=== PATIENT | female | born 1975 | race Caucasian/White ===

== ENCOUNTER 2020-11-11 12:31 | Emergency (ER) | payer BC, SELFPAY ==
[2020-11-11 12:51] VITALS: BP 121/78; PULSE 96; RESP 16; TEMP 36.3; O2SAT 97; BMI 36.8
--- NOTE | 2020-11-11 12:55 | ED_ITS ---
HPI - Eye Problem General Chief complaint: Eye Problems Stated complaint: eye problem Time Seen by Provider: 11/11/20 12:55 History of Present Illness HPI Narrative: Patient complains of right eye redness, saw her doctor was put on Polytrim drops and now there is swelling of the right upper lid and redness to the lid and some swelling below the eye, no loss of vision no photophobia no headache no rash no eye pain Related Data Previous Rx's Medication Instructions Recorded cephalexin 500 mg PO QID 7 Days #28 tab 11/11/20 Allergies Allergy/AdvReac Type Severity Reaction Status Date / Time No Known Allergies [NKA] Allergy Verified 11/11/20 12:55 Review of Systems Review of Systems: Right eyelid redness and pain as well as right eye redness Negatives are no fever no chills no dizziness no weakness no headache no vision loss no eye pain no photophobia no neck pain no chest pain no shortness of breath no skin rash Yes all other systems are reviewed and are negative [facility] Past Medical History Source: nursing notes reviewed Medical History (Updated 11/12/20 @ 00:01 by Gina Sorto) delivery delivered Hypothyroid Surgical History (Updated 11/11/20 @ 12:55 by Mary Rosales) Hx of cholecystectomy Social History Social History Advance Directives: Yes Advance Directives Information Provided: Yes Advance Directives on File: No Physical Exam Vital Signs: Vital Signs: Last Vital Signs Temp 97.3 F 11/11/20 12:51 Pulse 96 11/11/20 12:51 Resp 16 11/11/20 12:51 BP 121/78 11/11/20 12:51 Pulse Ox 97 11/11/20 12:51 Body Mass Index 36.8 General appearance no acute distress Head is normocephalic atraumatic The eye exam visual acuity is 2020 bilateral The right eye had some conjunctival redness no obvious discharge, the right eyelid the skin was red warm and tender, there was some mild swelling beneath the eye, pupils equal round reactive to light and extraocular motions are full and intact, there is no rash around the eye Pharynx is clear with moist mucous membranes Neck is supple Respiratory no distress Skin no rashes Course Course Course Narrative: Patient is being treated with Polytrim drops for conjunctivitis As the skin of the eyelid is now red and warm and tender I am concerned about a developing cellulitis so we started antibiotic by mouth, patient will follow with eye doctor if not better or return here any time if worse Discharge Plan Discharge Clinical Impression: Cellulitis, Blepharitis, Bacterial conjunctivitis Patient Disposition: Home, Self-Care Additional Instructions: Continue the Polytrim antibiotic eyedrops As the skin on the eyelid is very red and tender I am concerned getting a skin infection around the eye so we are starting Keflex antibiotics I stained the eye there was no evidence of corneal abrasion or ulceration The visual acuity was normal 2019 If not better by Saturday follow with eye doctor or primary care doctor, or return here any time if things are failing to improve or getting worse in any way, especially if you develop eye pain or vision loss Prescriptions: New cephalexin 500 mg tablet 500 mg PO QID 7 Days Qty: 28 RF: 0 Referrals: Rajesh Louise [Physician] - 2 days (Right eye blepharitis, conjunctivitis) Interventions: ED Discharge Assessment Last Done: 11/11/20 13:25 Discharge Date/Time: 11/11/20 13:26
[2020-11-11] MEDS: Fluorescein Sodium STRIP 1 STRIP EYE-LEFT (13:06)
[2020-11-11] MEDS: Tetracaine HCl/PF 0.5% Oph Sol 4 ML DROPS 3 DROP EYE-LEFT (13:06)
[2020-11-11] MEDS: cephALEXin 500 MG CAPSULE PO (13:22)
== END 2020-11-11 13:26 | disposition home or self-care (01) ==
PROVIDERS: Emergency Provider Emergency Medicine; PCP Nurse Practitioner Family
DX: H01.001 Unspecified blepharitis right upper eyelid (principal); H10.31 Unspecified acute conjunctivitis, right eye; Z79.899 Other long term (current) drug therapy
CPT/HCPCS: 99283

== ENCOUNTER 2025-05-31 11:59 | Emergency (ER) | payer BC, SELFPAY ==
[2025-05-31] VITALS (8 sets, daily range): BP systolic 100–153; BP diastolic 63–74; PULSE 73–120; RESP 16–18; TEMP 36.2–36.6; O2SAT 98–100; BMI 29.7
--- NOTE | ~2025-05-31 | CT_ITS ---
EXAMINATION: CT CERVICAL SPINE WITHOUT CONTRAST CLINICAL INFORMATION: Fall, head strike COMPARISON: None available. TECHNIQUE: Axial imaging. Sagittal and coronal reconstructions. This CT examination was performed using dose optimization techniques as appropriate, variously including the following: *Automated exposure control *Adjustment of mA and/or kV according to patient size (this includes techniques or standardized protocols for targeted exams where dose is matched to indication/reason for exam; i.e. extremities or head) *Use of iterative reconstruction technique FINDINGS: Craniocervical and atlantoaxial articular is maintained. Straightening of the spinal cervical curvature. Sagittal vertebral body alignment is maintained. Predens space is maintained. Vertebral body heights are maintained. No evidence of acute fracture or traumatic subluxation. Small corticated ossification anterior to the C4-5 disc space, appears chronic. Disc spaces are maintained. Facet joint articulation is maintained.. No prevertebral soft tissue swelling. Esophagus is nondistended. Trachea is patent. No suspicious thyroid findings. No pathologically enlarged lymph nodes is seen. Lung apices are clear. CT/CT cervical spine wo IV con IMPRESSION: No CT evidence of acute fracture or traumatic malalignment Fleischner guidelines were followed. Electronically signed by: Sachin Sanchez MD 05/31/2025 01:28 PM EST
--- NOTE | ~2025-05-31 | CT_ITS ---
EXAMINATION: CT HEAD WITHOUT IV CONTRAST HISTORY: syncope, +head strike. TECHNIQUE: Unenhanced helical CT of the head was performed per standard departmental protocol. Coronal and sagittal reformats of the head were also evaluated. One or more of the following techniques was used for dose reduction: Automated exposure control, adjustment of the mA and/or kV according to patient size, use of iterative reconstruction technique. DLP: 743 mGy-cm COMPARISON: There are no prior studies available for comparison. FINDINGS: BRAIN: The brain parenchyma is unremarkable. There is normal mckenzie/white differentiation. The ventricular system is normal in size and configuration. There is no mass effect or midline shift. No intra- or extra-axial fluid collections are identified. SINUSES: There is mucosal thickening in the bilateral maxillary sinuses. The mastoid air cells and middle ear cavities are well pneumatized. ORBITS: The visualized orbits are unremarkable. BONES/SOFT TISSUES: The extracranial soft tissues are unremarkable. The calvarium is intact. No suspicious lytic or sclerotic lesions. CT/CT head/brain wo IV con IMPRESSION: Unremarkable unenhanced head CT. Electronically signed by: Steven Herrera MD 05/31/2025 01:07 PM [facility] [place]
--- NOTE | 2025-05-31 12:11 | ED_ITS ---
[facility] - General Adult General Chief complaint: Syncope Stated complaint: General Medical Time Seen by Provider: 05/31/25 13:18 Source: patient Mode of arrival: ambulatory Limitations: no limitations History of Present Illness ED Provider: Dr. Bauman [facility] narrative: This is a 49-year-old female presented hospital today for evaluation of multiple syncopal episode yesterday. Patient stated she had 2 syncopal episode. The first one was when she was lying down on the couch. She stand up. She fell some dizziness prior to her syncopal episode. She denies any chest pain denies any shortness of breath. Patient stated the 2nd episode happened when she was attempted to ambulate to the kitchen. She fell a warm flushing sensation prior to a syncopal episode.. She is unable to recall the event however the said she would pass out. She has no active chest pain at this time. No leg swelling no history of blood clots or DVT or PE in the past. Related Data Previous Rx's ?Medication ?Instructions ?Recorded cephalexin 500 mg tablet 500 mg PO QID 7 days #28 tab s 11/11/20 Allergies Allergy/AdvReac Type Severity Reaction Status Date / Time No Known Allergies (NKA) Allergy Verified 05/31/25 12:13 Review of Systems 2 Review of Systems: Pertinent review of systems as mentioned in [facility]. All other system otherwise negative. [facility] Past Medical History [facility] Narrative: Medical history as mentioned in HPI Medical History (Updated 05/31/25 @ 15:25 by Marva Bauman DO) delivery delivered Hypothyroid Surgical History (Updated 11/11/20 @ 12:55 by Mary Rosales RN) Hx of cholecystectomy Social History Social History Advance Directives: No Advance Directives Information Provided: Yes Physical Exam ED Exam Exam: General: Pleasant, no distress, interacting appropriately Head: Normacephalic, atraumatic ENT: oral mucosa moist, neck supple, no tracheal deviation Cardiovascular: regular rate, regular rhythm, no murmurs, rubbing, gallops Respiratory: CTAB, no wheeze, rales, rhonchi Extremities: No limb pain or swelling, no calf tenderness Neurological: Awake and alert, no facial droop noted Skin: Warm and dry Psychiatric: Appropriate mood and thoughts Vital Signs: Vital Signs - 24 hr 05/31/25 12:11 05/31/25 12:57 05/31/25 14:08 Temperature 97.1 F Pulse Rate 120 H 101 H 76 Respiratory Rate 18 16 Blood Pressure 153/73 H 111/70 102/65 Pulse Oximetry 98 99 Oxygen Delivery Method Room Air Room Air 05/31/25 14:08 05/31/25 14:09 05/31/25 15:04 Temperature Pulse Rate 94 91 73 Respiratory Rate Blood Pressure 112/70 100/67 111/69 Pulse Oximetry Oxygen Delivery Method 05/31/25 15:05 05/31/25 15:07 05/31/25 15:07 Temperature 97.8 F Pulse Rate 76 76 76 Respiratory Rate 16 Blood Pressure 119/74 119/74 130/63 Pulse Oximetry 100 Oxygen Delivery Method Room Air BMI result Body Mass Index 29.7 Course Course Course Narrative: This is an RME: Additional HPI, ROS, PE not included below will be deferred to primary provider. RME assessment and note performed by: Kari Del Castillo PA-C This is a [id number], with a hx of hypothyroidism, who presents to the ER with a complaint of 3 episodes of syncope yesterday. Patient reports that she was at home around 930 when she got up from her couch walk to her kitchen which is not a far distance and woke up on the floor. There is 2 other episodes similar. These were witnessed by her . No history of similar symptoms in the past. She states that she was feeling well prior to the incident. No recent illness. She did have a cold for several days in April. No alcohol or drug use. No recent diarrhea or vomiting. No recent travels, surgeries, hospitalizations. No hormone replacement therapy. Reports this AM she felt a little off . No pain. Otherwise feel ok. No CP, SOB. Plan: Further ER evaluation needed. Medications Administered Discontinued Medications Generic Name Dose Route Start Last Admin Trade Name Freq PRN Reason Stop Dose Admin Lactated Ringer's 1,000 mls @ 999 mls/hr 05/31/25 13:30 05/31/25 14:21 Lr IV 05/31/25 14:30 999 mls/hr .Q1H1M MIS Administration Medical Decision Making Medical Decision Making MDM Narrative: 49-year-old female presented hospital today for evaluation of multiple syncopal episode. Patient has no be tachycardic with heart rate in the 100. We will plan to give patient a bolus IV fluid. We will check orthostasis afterward. Given her history of presentation this does sounds like orthostatic hypotension. The patient had lab work performed prior to my evaluation. CT head was negative. CT C-spine is negative. Patient's CBC is unremarkable, chemistries unremarkable. Patient's viral swab is negative. Review patient's EKG shows sinus rhythm. No sign of cardiac arrhythmia Patient's CBC and chemistries unremarkable. Orthostatic vital signs were obtained after IV fluid. The patient has no signs of orthostatic hypotension. Patient's cardiac enzymes negative EKG is unremarkable. We will plan to discharge patient does time. I suspect patient likely has orthostatic hypotension that may have caused her syncopal episode. Encouraged the patient to increase her fluid intake and salt intake for the time being. She agrees and understands this plan all questions were addressed. Patient is asymptomatic at time of discharge. Differential Diagnosis Differential Diagnoses: The differential diagnosis associated with the presentation includes Cardiac arrhythmia, tachycardia, syncope, orthostatic hypotension, closed head trauma, dehydration Admission/Observation Consideration of admission/observation: Escalation of care including admission/observation considered Lab Data MDM Lab Attestation statement: I reviewed the patient's lab results. 05/31/25 12:32 05/31/25 12:32 Labs: Lab Results 05/31/25 Range/Units 12:32 WBC 8.5 (4.8-10.8) X10*3/uL RBC 5.16 (4.20-5.50) X10*6/uL Hgb 15.2 (12.0-16.0) g/dl Hct 46.0 (37.0-47.0) % MCV 89.1 (80.0-98.0) fL MCH 29.5 (27.0-33.0) pg MCHC 33.0 (31.0-35.0) g/dl RDW 13.1 (11.0-16.0) % Plt Count 260 (160-400) X10*3/uL MPV 10.6 (9.4-12.3) fL Immature Gran % (Auto) 0.2 (0.0-0.4) % Neut % (Auto) 67.3 (45-73) % Lymph % (Auto) 21.2 (20-40) % [place] % (Auto) 4.7 (2-11) % Eos % (Auto) 5.9 H (0-4) % Baso % (Auto) 0.7 (0-2) % Lymph # (Auto) 1.8 (1.2-4.9) X10*3/uL [place] # (Auto) 0.4 (0.1-1.2) X10*3/uL Eos # (Auto) 0.5 H (0.0-0.4) X10*3/uL Baso # (Auto) 0.1 (0.0-0.2) X10*3/uL Abs Immat Gran (auto) 0.02 (0.00-0.03) X10*3/uL Absolute Neuts (auto) 5.7 (2.0-8.3) x10*3/uL Absolute Nucleated RBC 0.000 (0.0-0.012) X10*3/uL Nucleated RBC % (auto) 0.0 (0.0-0.2) /100WBC PT 11.1 L (11.2-13.5) SEC INR 0.9 (0.9-1.1) Sodium 141 (135-145) mmol/L Potassium 3.6 (3.3-5.1) mmol/L Chloride 108 (96-108) mmol/L Carbon Dioxide 25 (22-29) mmol/L Anion Gap 12 (12-20) BUN 10 (9-16) mg/dL Creatinine 0.83 (0.5-1.4) mg/dL Estim Creat Clear Calc 87.3 Estimated GFR > 60 Random Glucose 90 (60-115) mg/dL Calcium 9.3 (8.4-10.2) mg/dL Magnesium 2.0 (1.6-2.6) mg/dL Total Bilirubin 0.5 (0.0-1.0) mg/dL Direct Bilirubin 0.2 (0.0-0.5) mg/dL AST 24 (5-31) U/L ALT 24 (0-31) U/L Alkaline Phosphatase 59 (39-117) U/L Troponin I High Sens < 2.7 (<3.5-17.0) ng/L Total Protein 7.7 (6.5-8.0) g/dL Albumin 4.6 (3.5-5.0) g/dL TSH 1.44 (0.32-4.0) uIU/mL Influenza Type A (PCR) NEGATIVE (Negative) Influenza Type B (PCR) NEGATIVE (Negative) RSV RNA Qual (PCR) NEGATIVE (Negative) SARS-CoV-2 RNA (RT-PCR) NEGATIVE (Negative) Independent Interpretation I performed an independent interpretation of an: EKG Discharge Plan Discharge Clinical Impression: Orthostasis Syncope Qualifiers: Syncope type: unspecified Qualified Code(s): R55 - Syncope and collapse Patient Disposition: Home, Self-Care Instructions: Syncope (ED) Additional Instructions: Increase your fluid and salt intake. Make sure to stay well hydrated. Drink at least 64 ounces per day. Lab work today is reassuring. Thyroid level is normal Electrolytes normal, Cardiac enzyme is normal. Red Blood cell level is normal. Prescriptions: No Action cephalexin 500 mg tablet 500 mg PO QID 7 Days Qty: 28 0RF Print Language: Frisian
--- NOTE | 2025-05-31 12:18 | ECG_ITS ---
Test Reason : syncope Blood Pressure : */* mmHG Vent. Rate : 100 BPM Atrial Rate : 100 BPM P-R Int : 108 ms QRS Dur : 72 ms QT Int : 348 ms P-R-T Axes : 48 8 63 degrees QTcB Int : 448 ms Sinus rhythm with short NC Cannot rule out Anterior infarct , age undetermined Abnormal ECG No previous ECGs available Referred By: Kari Del Castillo Electronically Signed By: Mango Stauffer
[2025-05-31 12:37] LABS: MANUAL DIFF FLAG NO
[2025-05-31 12:38] LABS: Hematocrit 46.0 % (37.0-47.0); Hemoglobin 15.2 g/dl (12.0-16.0); Imm Gran Abs Auto 0.02 X10*3/uL (0.00-0.03); Imm Gran Pct Auto 0.2 % (0.0-0.4); Lymphocytes Absolute Auto 1.8 X10*3/uL (1.2-4.9); Mean Corpuscular HGB Conc 33.0 g/dl (31.0-35.0); Mean Corpuscular Hemoglobin 29.5 pg (27.0-33.0); Mean Corpuscular Volume 89.1 fL (80.0-98.0); NRBC Abs Auto 0.000 X10*3/uL (0.0-0.012); NRBC Pct Auto 0.0 /100WBC (0.0-0.2); Platelet Count 260 X10*3/uL (160-400); Red Blood Count 5.16 X10*6/uL (4.20-5.50); White Blood Count 8.5 X10*3/uL (4.8-10.8)
[2025-05-31 12:47] LABS: INTERNATIONAL NORM RATIO 0.9 (0.9-1.1); Prothrombin Time 11.1 SEC (11.2-13.5)
[2025-05-31 12:54] LABS: Alanine Aminotransferase 24 U/L (0-31); Albumin Level 4.6 g/dL (3.5-5.0); Alkaline Phosphatase 59 U/L (39-117); Anion Gap 12 (12-20); Aspartate Amino Transferase 24 U/L (5-31); Blood Urea Nitrogen 10 mg/dL (9-16); Calcium 9.3 mg/dL (8.4-10.2); Carbon Dioxide 25 mmol/L (22-29); Chloride 108 mmol/L (96-108); Creatinine Clr Calc Pharmacy 87.3; Estimated Glomerular Filt Rate > 60; Magnesium 2.0 mg/dL (1.6-2.6); Potassium 3.6 mmol/L (3.3-5.1); Sodium 141 mmol/L (135-145); Total Protein 7.7 g/dL (6.5-8.0)
[2025-05-31 13:04] LABS: Troponin-I High Sensitivity < 2.7 ng/L (<3.5-17.0)
[2025-05-31 13:16] LABS: Resp Syncy Virus RNA Qual PCR NEGATIVE (Negative); SARS COV2 PCR INHOUSE NEGATIVE (Negative)
[2025-05-31 14:03] LABS: Thyroid Stimulating Hormone 1.44 uIU/mL (0.32-4.0)
[2025-05-31] MEDS: Lactated Ringers 1,000 ML 999 ML IV (14:21)
--- OUTSIDE RECORDS SUMMARY | 2025-05-31 17:13 | XMS_ITS | Clinical Summary ---
Author Organization [facility] Address [address] [address] Phone Care Team Providers Care Cat Skinner Name Role Phone Pcp, Unknown Primary Care Provider Unavailabl e Allergies No known active allergies Medications levothyroxine (SYNTHROID, LEVOTHROID) 112 MCG tablet Take 112 mcg by mouth every morning. Active Active Problems No known active problems Social History Tobacco Use Types Packs/Day Years Used Date Smoking Tobacco: Former Cigarettes Smokeless Tobacco: Never Tobacco Cessation:Counseling Given: Not Answered Education Answer Date Recorded Are you interested in more education? Not on soledad e 11/03/2022 Are you concerned about learning? Not on file 11/03/2022 No 11/03/2022 No 11/03/2022 Digital Access Answer Date Recorded No 12/02/2022 No 12/02/2022 No 12/02/2022 Reliable internet access at home? Not on file 12/02/2022 Device with a working camera? Not on file Comments Unknown Sex and Gender Information Value Date Recorded Sex Assigned at Not on file Legal Sex Female 8:51 AM EDT Gender Identity Not on file Sexual Orientation Not on file Last Filed Vital Signs Vital Sign Reading Time Taken Comments Blood Pressure 122/66 10/12/2022 10:16 AM EDT Pulse 84 10/12/2022 10:16 AM EDT Temperature 36.6 C (97.9 F) 10/12/2022 10:16 AM EDT Respiratory Rate 18 10/12/2022 10:16 AM EDT Oxygen Saturation 99% 10/12/2022 10:16 AM EDT Inhaled Oxygen Concentration - - Weight 99.8 kg (220 lb) 10/12/2022 10:16 AM EDT Height 167.6 cm (5' 6 ) 10/12/2022 10:16 AM EDT Body Mass Index 35.51 10/12/2022 10:16 AM EDT Plan of Treatment Health Maintenance Due Date Last Done Comments LIPID PANEL 1973 TSH LEVEL 1973 DEPRESSION SCREENING 1985 SMOKING Hx and SMOKELESS TOBACCO SCREENING 1986 HEPATITIS C SCREENING 1991 HIV ONE-TIME SCREENING (18-65 YEARS) 1991 PAP SMEAR 1994 SCREENING FOR DIABETES 2008 MAMMOGRAM 2013 COLOGUARD 2018 COLONOSCOPY 2018 COLORECTAL CANCER SCREENING 2018 FIT TEST 2018 FOBT 2018 SIGMOIDOSCOPY 2018 VIRTUAL COLONOSCOPY 2018 PNEUMOCOCCAL VACCINES (50+ years) (1 of 1 - PCV) 2023 ZOSTER VACCINES (1 of 2) 2023 INFLUENZA VACCINE (#1) 2025 , 04/04/2021, 04/28/2020, Additional history exists COVID-19 VACCINE (2024- season) 2025 05/16/2021, 09/19/2020, 08/23/2020, Additional history exists Adult Td,Tdap Booster 10/20/2030 10/20/2020 RSV VACCINE (1 - 1-dose 75+ series) 2048 HEPATITIS A VACCINES Aged Out No long er eligible based on patient's age to complete this topic HIB VACCINES Aged Out No longer eligi ble based on patient's age to complete this topic MENINGOCOCCAL VACCINES (ACWY) Aged Out No longer eligible based on patient's age to complete this topic MENINGOCOCCAL VACCINES (B) Aged Out N o longer eligible based on patient's age to complete this topic Medical Devices Not on file [place] [address] [address] [place] [address] [place] [address] [place] [address] Care Teams Cat Skinner Relationship Specialty Start Date End Date Pcp, Unknown PCP - General 10/12/22 Additional Source Comments The information contained in this document represents components of the legal health record. It is not the complete legal health record.[facility]
== END 2025-05-31 15:51 | disposition home or self-care (01) ==
PROVIDERS: Physician Assistant Medical; Emergency Provider Student in an Organized Health Care Education/Training Program; PCP Physician Assistant
DX: I95.1 Orthostatic hypotension (principal); S09.90XA Unspecified injury of head, initial encounter; W19.XXXA Unspecified fall, initial encounter; Y93.9 Activity, unspecified; Y92.9 Unspecified place or not applicable; E03.9 Hypothyroidism, unspecified; Z03.818 Encounter for observation for suspected exposure to other biological agents ruled out
CPT/HCPCS: 36415; 70450; 72125; 80048; 80076; 83735; 84443; 84484; 85025; 85610; 87637; 93005; 96360; 99284; 99285; J7120

== ENCOUNTER → 2025-05-31 12:18 | Outpatient (BNV) | payer BC, SELFPAY | PROVIDERS: Emergency Provider Student in an Organized Health Care Education/Training Program; PCP Physician Assistant; Visit Provider Internal Medicine Cardiovascular Disease | DX: R94.31 Abnormal electrocardiogram [ECG] [EKG] (principal); R55 Syncope and collapse | CPT/HCPCS: 93010 ==

== ENCOUNTER → 2025-05-31 12:18 | Outpatient (BNV) | payer BC, SELFPAY | PROVIDERS: Emergency Provider Student in an Organized Health Care Education/Training Program; PCP Physician Assistant; Visit Provider Radiology Diagnostic Ultrasound | DX: R55 Syncope and collapse (principal); S09.90XA Unspecified injury of head, initial encounter | CPT/HCPCS: 70450; 72125 ==